=== PATIENT | male | born 1960 | race Caucasian/White ===

== ENCOUNTER 2017-08-01 16:49 | Emergency (ER) | payer MEDICARE, OTHER ==
[~2017-08-01] VITALS: Ht 170.2 cm; Wt 86.0 kg
[2017-08-01 17:03] VITALS: BP 172/77; PULSE 83; RESP 16; TEMP 98.1; O2SAT 96
[2017-08-01] MEDS ORDERED: PANT40TA3 PO (17:18)
--- NOTE | 2017-08-01 17:52 | PD ---
HPI Chief Complaint: GI Complaint Time Seen by Provider: 17:37 (Jaja Godfrey DO) Time Seen by Provider: 20:50 (Kenyetta Martini MD) Travel History International Travel<30 days: No Contact w/Intl Traveler<30days: No Traveled to known affect area: No (Jaja Godfrey DO) History of Present Illness HPI 56yo M with PMH of perforated ulcer last year in [place] presents to the ED with c/o abdominal pain that started when he woke up at about 5am this morning. Pain is sharp, severe, nonradiating and constant. Said he made himself vomit and there was blood in it. Pt said he feels dizzy and sob because of the pain. Said pain is worst with movement. Denies any fever, chest pain, focal weakness or numbness. (Jaja Godfrey DO) HPI Accepted transfer of care from Dr. Godfrey (Kenyetta Martini MD) [facility] Past Medical History Arthritis: Yes (rheumatoid) Gastrointestinal Disorders: Yes (ulcer) Gout: Yes Influenza Vaccination: No (Jaja Godfrey DO) Narrative Medical Nursing notes reviewed; accepted in transfer of care from Dr. Godfrey (Kenyetta Martini MD) Past Surgical History Abdominal Surgery: Yes (perforated ulcer) Joint Replacement: Yes (bilat hip) (Jaja Godfrey DO) Social History Alcohol Use: Yes (occas) Tobacco Use: No Substance Use: No (Jaja Godfrey DO) Allergies-Medications (Allergen,Severity, Reaction): Coded Allergies: No Known Allergies (Unverified , 08/01/17) Reported Meds & Prescriptions Reported Meds & Active Scripts Active Reported Pantoprazole (Pantoprazole Sodium) 40 Mg Tab 80 Mg PO ONCE (Kenyetta Martini MD) Narrative Medication Nursing notes reviewed (Kenyetta Martini MD) Review of Systems Except as stated in HPI: all other systems reviewed are Neg (Jaja Godfrey DO) Except as stated in HPI: all other systems reviewed are Neg (Kenyetta Martini MD) Physical Exam Narrative GENERAL: 56yo M in moderate distress. SKIN: Focused skin assessment warm/dry. HEAD: Atraumatic. Normocephalic. EYES: Pupils equal and round. No scleral icterus. No injection or drainage. ENT: No nasal bleeding or discharge. Mucous membranes pink and moist. NECK: Trachea midline. No JVD. CARDIOVASCULAR: Regular rate and rhythm. No murmur appreciated. RESPIRATORY: No accessory muscle use. Clear to auscultation. Breath sounds equal bilaterally. GASTROINTESTINAL: Abdomen soft, +TTP epigastric and RUQ. MUSCULOSKELETAL: No obvious deformities. No clubbing. No cyanosis. No edema. NEUROLOGICAL: Awake and alert. No obvious cranial nerve deficits. Motor grossly within normal limits. Normal speech. PSYCHIATRIC: Appropriate mood and affect; insight and judgment normal. (Jaja Godfrey DO) Narrative GENERAL: Well-developed well-nourished male no acute distress no respiratory distress SKIN: Warm and dry. HEAD: Normocephalic. EYES: No scleral icterus. No injection or drainage. NECK: Supple, trachea midline. No JVD or lymphadenopathy. CARDIOVASCULAR: Regular rate and rhythm without murmurs, gallops, or rubs. RESPIRATORY: Breath sounds equal bilaterally. No accessory muscle use. GASTROINTESTINAL: Abdomen soft, non-tender, nondistended. (Kenyetta Martini MD) Data Data Last Documented VS Vital Signs Date Time Temp Pulse Resp B/P (MAP) Pulse Ox O2 Delivery O2 Flow Rate FiO2 08/01/17 19:32 66 20 139/88 (105) 99 08/01/17 18:15 Room Air 08/01/17 17:03 98.1 (Kenyetta Martini MD) Orders Orders Chest, Single Ap (08/01/17 ) Complete Blood Count With Diff (08/01/17 17:50) Comprehensive Metabolic Panel (08/01/17 17:50) Lipase (08/01/17 17:50) Prothrombin Time / Inr (Pt) (08/01/17 17:50) Act Partial Throm Time (Ptt) (08/01/17 17:50) Ct Abd/Pel W Iv Contrast(Rout) (08/01/17 17:50) Morphine Inj (Morphine Inj) (08/01/17 18:00) Electrocardiogram (08/01/17 ) Ondansetron Odt (Zofran Odt) (08/01/17 18:00) Type And Screen (08/01/17 17:57) Urinalysis - C+S If Indicated (08/01/17 18:54) Iohexol 350 Inj (Omnipaque 350 Inj) (08/01/17 18:54) Morphine Inj (Morphine Inj) (08/01/17 19:15) Metoclopramide Inj (Reglan Inj) (08/01/17 21:00) Pantoprazole Inj (Protonix Inj) (08/01/17 21:00) Sucralfate Liq (Carafate Liq) (08/01/17 21:00) Sodium Chlor 0.9% 1000 Ml Inj (Ns 1000 M (08/01/17 21:00) Ed Discharge Order (08/01/17 20:56) (Kenyetta Martini MD) Labs Laboratory Tests Test 08/01/17 18:00 08/01/17 19:50 White Blood Count 7.6 TH/MM3 Red Blood Count 5.46 MIL/MM3 Hemoglobin 12.3 GM/DL Hematocrit 39.3 % Mean Corpuscular Volume 72.0 FL Mean Corpuscular Hemoglobin 22.6 PG Mean Corpuscular Hemoglobin Concent 31.3 % Red Cell Distribution Width 18.2 % Platelet Count 300 TH/MM3 Mean Platelet Volume 9.2 FL Neutrophils (%) (Auto) 53.6 % Lymphocytes (%) (Auto) 33.5 % Monocytes (%) (Auto) 9.1 % Eosinophils (%) (Auto) 3.4 % Basophils (%) (Auto) 0.4 % Neutrophils # (Auto) 4.1 TH/MM3 Lymphocytes # (Auto) 2.5 TH/MM3 Monocytes # (Auto) 0.7 TH/MM3 Eosinophils # (Auto) 0.3 TH/MM3 Basophils # (Auto) 0.0 TH/MM3 CBC Comment AUTO DIFF Differential Comment AUTO DIFF CONFIRMED Platelet Estimate NORMAL Platelet Morphology Comment NORMAL Ovalocytes 1+ Prothrombin Time 10.6 SEC Prothromb Time International Ratio 1.0 RATIO Activated Partial Thromboplast Time 26.6 SEC Blood Urea Nitrogen 11 MG/DL Creatinine 1.10 MG/DL Random Glucose 73 MG/DL Total Protein 7.6 GM/DL Albumin 4.0 GM/DL Calcium Level 11.1 MG/DL Alkaline Phosphatase 103 U/L Aspartate Amino Transf (AST/SGOT) 8 U/L Alanine Aminotransferase (ALT/SGPT) 17 U/L Total Bilirubin 0.5 MG/DL Sodium Level 143 MEQ/L Potassium Level 3.7 MEQ/L Chloride Level 114 MEQ/L Carbon Dioxide Level 21.3 MEQ/L Anion Gap 8 MEQ/L Estimat Glomerular Filtration Rate 69 ML/MIN Lipase 177 U/L Urine Color YELLOW Urine Turbidity CLEAR Urine pH 5.5 Urine Specific Dane LESS/EQUAL 1.005 Urine Protein NEG mg/dL Urine Glucose (UA) NEG mg/dL Urine Ketones NEG mg/dL Urine Occult Blood NEG Urine Nitrite NEG Urine Bilirubin NEG Urine Urobilinogen 0.2 MG/DL Urine Leukocyte Esterase NEG Urine RBC 0-2 /hpf Urine WBC 0-2 /hpf Urine Squamous Epithelial Cells 0-5 /hpf Urine Bacteria NONE /hpf Microscopic Urinalysis Comment CULT NOT INDICATED (Kenyetta Martini MD) [facility] Medical Decision Making Medical Screen Exam Complete: Yes Emergency Medical Condition: Yes Differential Diagnosis Perforated ulcer vs. pancreatitis vs. hepatitis vs. upper GI bleed Narrative Course 56yo M with severe abdominal pain today. Pt said he vomited blood once. Had black stool a few days ago, hemaprompt negative. Pt still with a lot of pain after first dose of morphine so second dose ordered. Sign out to next team to follow up CT scan and reevaluate. (Jaja Godfrey DO) Medical Screen Exam Complete: Yes Emergency Medical Condition: Yes Medical Record Reviewed: Yes Interpretation(s) Last Impressions Abdomen/Pelvis CT 08/01/17 1750 Signed Impressions: CONCLUSION: 1. No obstruction or acute inflammatory changes are demonstrated. No free air. 2. Solitary vague hypodensities are seen of the liver, spleen and right kidney . They don't appear to represent cysts. Nonemergent outpatient abdomen MRI with and without contrast recommended for attempted further characterization. 3. Visualized lung bases are clear. Please see above. Chest X-Ray 08/01/17 0000 Signed Impressions: CONCLUSION: Very mild bibasilar atelectasis. Faint nodularity on the left. Follow-up 2 view chest x-ray recommended in a few weeks to confirm resolution. CBC & BMP Diagram 08/01/17 18:00 Total Protein 7.6, Albumin 4.0, Calcium Level 11.1 H, Alkaline Phosphatase 103, Aspartate Amino Transf (AST/SGOT) 8 L, Alanine Aminotransferase (ALT/SGPT) 17, Total Bilirubin 0.5 Vital Signs Date Time Temp Pulse Resp B/P (MAP) Pulse Ox O2 Delivery O2 Flow Rate FiO2 6/3/18 19:32 66 20 139/88 (105) 99 08/01/17 19:32 20 08/01/17 18:31 18 08/01/17 18:15 68 18 118/80 (93) 99 Room Air 08/01/17 17:03 98.1 83 16 172/77 (108) 96 EKG normal sinus rhythm rate [address] elevation injury pattern or ectopy noted Differential Diagnosis Accepted transfer of care from Dr. Godfrey; please refer to her dictation Narrative Course Accepted in transfer of care from Dr. Godfrey; follow-up of labs and imaging study for disposition Patient complains of nausea without vomiting given Reglan 10 mg IV 1 dose also administered Protonix IV 40 mg IV as well as Carafate 1 g liquid Carafate Patient is well hydrated vital signs are normal range patient voicing no concerns or complaints imaging study and lab results have been discussed with the patient patient is encouraged to follow-up with maintenance engineer given prescription for as needed Zofran and recommendation of Carafate 4 x daily 7 days (Kenyetta Martini MD) [facility] Point of Care Internal Pos. & Neg. Controls: Passed Fecal Specimen Occult Blood: Negative (Jaja Godfrey DO) Diagnosis Primary Impression: Gastritis Qualified Codes: K29.00 - Acute gastritis without bleeding Additional Impression: H/O peptic ulcer Referrals: [facility] call for appointment Primary Care Physician call for appointment Patient Instructions: General Instructions, Narcotic given in the ED Additional Instructions: Follow-up with maintenance engineer Take medication as prescribed Return to the emergency department for any concerns or change in condition Avoid nonsteroidal anti-inflammatory medication such as ibuprofen/Motrin/Advil or Aleve/naproxen/Naprosyn Med/Other Pt SpecificInfo: Prescription(s) given (Kenyetta Martini MD) Scripts Ondansetron Odt (Zofran Odt) 4 Mg Tab 4 MG SL Q6HR Y for Nausea/Vomiting, #10 TAB 0 Refills Prov: Kenyetta Martini MD 08/01/17 Sucralfate Liq (Carafate Liq) 1 Gm/10 Ml Susp 1 GM PO QID for Duodenal ulcer for 7 Days, ML 0 Refills on empty stomach Prov: Kenyetta Martini MD 08/01/17 Disposition: 01 DISCHARGE HOME Condition: Stable Jaja Godfrey DO Aug 01, 2017 17:52 Kenyetta Martini MD Aug 01, 2017 21:03
[2017-08-01] MEDS ORDERED: ONDANSETRON ODT 4 MG TAB PO ONE (18:00)
[2017-08-01] MEDS ORDERED: MORPHINE SULFATE 4 MG/ML INJ IV PUSH ONE ×2 (18:00→19:15)
[2017-08-01 18:15] VITALS: BP 118/80; PULSE 68; RESP 18; O2SAT 99
[2017-08-01 18:16] LABS: AUTOMATED NEUTROPHIL # 4.1 TH/MM3 (1.8-7.7); BASOPHIL % 0.4 % (0.0-2.0); EOSINOPHIL # 0.3 TH/MM3 (0-0.4); EOSINOPHIL % 3.4 % (0.0-4.0); HEMATOCRIT 39.3 % (39.0-51.0); HEMOGLOBIN 12.3 GM/DL (13.0-17.0); LYMPH % 33.5 % (9.0-44.0); LYMPHOCYTE # 2.5 TH/MM3 (1.0-4.8); MEAN CORPUSCULAR HEMOGLOBIN 22.6 PG (27.0-34.0); MEAN CORPUSCULAR HGB CONC 31.3 % (32.0-36.0); MEAN PLATELET VOLUME 9.2 FL (7.0-11.0); MONO % 9.1 % (0.0-8.0); MONOCYTE # 0.7 TH/MM3 (0-0.9); NEUT % 53.6 % (16.0-70.0); PLATELET COUNT 300 TH/MM3 (150-450); RED BLOOD COUNT 5.46 MIL/MM3 (4.50-5.90); RED CELL DISTRIBUTION WIDTH 18.2 % (11.6-17.2); WHITE BLOOD COUNT 7.6 TH/MM3 (4.0-11.0)
[2017-08-01 18:27] LABS: CHLORIDE 114 MEQ/L (98-107); SODIUM (NA) 143 MEQ/L (136-145)
[2017-08-01 18:31] LABS: BICARBONATE 21.3 MEQ/L (21.0-32.0); BLOOD UREA NITROGEN 11 MG/DL (7-18); CALCIUM 11.1 MG/DL (8.5-10.1); GLUCOSE,RANDOM 73 MG/DL (74-106)
[2017-08-01 18:34] LABS: ALT (GPT) 17 U/L (12-78); AST (GOT) 8 U/L (15-37); GLOMERULAR FILTRATION RATE 69 ML/MIN (>89); OVALOCYTES 1+ (NORMAL)
[2017-08-01 18:35] LABS: TOTAL BILIRUBIN ADULT 0.5 MG/DL (0.2-1.0); TOTAL PROTEIN 7.6 GM/DL (6.4-8.2)
[2017-08-01 18:36] LABS: PROTHROMBIN TIME - PATIENT 10.6 SEC (9.8-11.6)
[2017-08-01 18:37] LABS: ALKALINE PHOSPHATASE 103 U/L (45-117)
--- NOTE | 2017-08-01 18:38 | RADRPT ---
EXAM DATE: 08/01/2017 6:32 PM EDT AGE/SEX: 56 years / Male INDICATIONS: Short of breath, upper abdomen,lower chest pain, free air CLINICAL DATA: This is the patient's initial encounter. Patient reports that signs and symptoms have been present for 1 day and indicates a pain score of 10/10. MEDICAL/SURGICAL HISTORY: Ulcers. . abdomen surgery for ulcers COMPARISON: No prior [facility] exams available for comparison. FINDINGS: Mild atelectasis seen of the lung bases. Slightly nodular configuration left base. No pleural effusio n. No pneumothorax. Heart size upper limits of normal. No perceptible free air in the upper abdomen. CONCLUSION: Very mild bibasilar atelectasis. Faint nodularity on the left. Follow-up 2 view chest x-ray recommend ed in a few weeks to confirm resolution. Electronically signed by: Luis Stephen MD 08/01/2017 6:37 PM EDT
[2017-08-01] MEDS ORDERED: IOHEXOL 350 MG/ML 10 ML VIAL (for RAD DIAG) IVCONTRAST ONE (18:54)
--- NOTE | 2017-08-01 19:04 | RADRPT ---
EXAM DATE: 08/01/2017 6:56 PM EDT AGE/SEX: 56 years / Male INDICATIONS: Epigastric and right upper quadrant pain. CLINICAL DATA: This is the patient's initial encounter. Patient reports that signs and symptoms have been present for 3 days and indicates a pain score of 5/10. MEDICAL/SURGICAL HISTORY: Ulcers. . Bilateral hip replacement. ORAL CONTRAST: No oral contrast ingested. RADIATION DOSE: 18.61 CTDI (mGy) COMPARISON: [facility], CHEST SINGLE AP, 08/01/2017. . TECHNIQUE: Multiple contiguous axial images were obtained through the abdomen and pelvis following b olus infusion of 95 ml Omnipaque 350 (iohexol) nonionic water-soluble contrast as a single exam dos e. No oral contrast ingested. Using automated exposure control and adjustment of the mA and/or kV ac cording to patient size, the radiation dose was kept as low as reasonably achievable to obtain optima l diagnostic quality images. FINDINGS: 14 mm vague hypodensity seen posteriorly of the right hepatic lobe. A similar hypodensity is seen in the spleen measuring 13 mm at. There is an intermediate attenuation 14 mm mass mid zone of the right kidney. All these are nonspecific. Solid organs otherwise appear normal. CT appearance of the gallbla dder within normal limits. No obstruction or acute inflammatory changes are seen of the gastrointestinal tract. No free air is d emonstrated. There is no free fluid or lymphadenopathy. Chest is included almost to the level of the damien and the visualized lung bases are clear. The casey t nodularity seen radiographically earlier today is artifactual or related to overlying soft tissue o r bony structures. No pulmonary masses present. No acute bony abnormalities are demonstrated. CONCLUSION: 1. No obstruction or acute inflammatory changes are demonstrated. No free air. 2. Solitary vague hypodensities are seen of the liver, spleen and right kidney. They don't appear to represent cysts. Nonemergent outpatient abdomen MRI with and without contrast recommended for attemp brandin further characterization. 3. Visualized lung bases are clear. Please see above. Electronically signed by: Luis Stephen MD 08/01/2017 7:03 PM EDT
[2017-08-01 19:32] VITALS: BP 139/88; PULSE 66; RESP 20; O2SAT 99
[2017-08-01 19:54] LABS: BILIRUBIN, URINE NEG (NEG); BLOOD, URINE NEG (NEG); GLUCOSE,URINE NEG (NEG); KETONE, URINE NEG (NEG); NITRITE,URINE NEG (NEG); PH, URINE 5.5 (5.0-8.5); URINE COLOR YELLOW (YELLW/STRAW); URINE LEUKOCYTE ESTERASE NEG (NEG)
[2017-08-01 19:58] LABS: RBC, URINE 0-2 /hpf (0-3); SQUAMOUS EPITHELIAL CELL URINE 0-5 /hpf (0-5); WBC, URINE 0-2 /hpf (0-5)
[2017-08-01] MEDS ORDERED: ZOFR4TAB3 SL (20:59)
[2017-08-01] MEDS ORDERED: CARA1SUS3 PO (20:59)
[2017-08-01] MEDS ORDERED: METOCLOPRAMIDE HCL 10 MG/2 ML VIAL IV PUSH ONE (21:00)
[2017-08-01] MEDS ORDERED: SODIUM CHLOR 0.9% 1000 ML INJ 1,000 ML IV ONE (21:00)
[2017-08-01] MEDS ORDERED: PANTOPRAZOLE SODIUM 40 MG VIAL IV PUSH ONE (21:00)
[2017-08-01] MEDS ORDERED: SUCRALFATE 1 GM/10 ML CUP PO ONE (21:00)
[2017-08-01 21:17] VITALS: BP 140/81
--- NOTE | 2017-08-02 08:54 | EKG ---
Date Performed: 08/01/2017 Time Performed: 18:04:23 PTAGE: 56 years EKG: Sinus rhythm NORMAL ECG NO PREVIOUS TRACING DOCTOR: Yoan Walker Interpretating Date/Time 08/02/2017 08:53:18
== END 2017-08-01 21:22 | disposition home or self-care (01) ==
LOC: PHED 16:49
DX: K29.70 Gastritis, unspecified, without bleeding (principal); J98.11 Atelectasis; R42 Dizziness and giddiness; M06.9 Rheumatoid arthritis, unspecified; M10.9 Gout, unspecified; Z87.11 Personal history of peptic ulcer disease
CPT/HCPCS: 71045; 74177; 80053; 81001; 83690; 85025; 85610; 85730; 86850; 86900; 86901; 93005; 96374; 96375; 96376; 99285; C9113; J2270; J2765; Q9967